=== PATIENT | female | born 1970 | race Caucasian/White ===

== ENCOUNTER → 2019-07-20 16:01 | Outpatient (ROUT) | payer OTHER, SELFPAY ==
[2019-07-22 11:08] LABS: COVID19 Sendout Not Detected (Not Detected)
== END ==
PROVIDERS: Visit Provider Internal Medicine
DX: E34.9 Endocrine disorder, unspecified (principal)
CPT/HCPCS: 87635

== ENCOUNTER 2020-05-19 16:21 | Emergency (ER) | payer OTHER, SELFPAY ==
[2020-05-19] VITALS (8 sets, daily range): BP systolic 123–170; BP diastolic 59–88; PULSE 58–76; RESP 16; TEMP 36.6; O2SAT 96–99; BMI 28.1
--- NOTE | 2020-05-19 16:33 | ED_ITS ---
HPI - General Adult <Roberto Bergman DO - Last Filed: 05/22/20 17:57> General Chief complaint: Abdominal Pain Stated complaint: states right ovarian cyst, more pain today Time Seen by Provider: 05/19/20 16:25 Source: patient Mode of arrival: Ambulatory Limitations: no limitations History of Present Illness HPI narrative: Patient is a 49-year-old female with a known 5 x 5 x 3.8 x 2.9 right side simple ovarian cyst. Was seen by travel counselor [employer] within the past 2 weeks for perimenopausal symptoms and right-sided pain. She was started on control pills for hormone regulation and has only been on these since that visit. She has been taking ibuprofen for the discomfort. She is scheduled for surgery to have right-sided cyst/over removed and also bilateral fallopian tubes. She reports no urinary symptoms. Some nausea but no vomiting. No new vaginal discharge. Related Data Previous Rx's Medication Instructions Recorded norethindrone acetate 1 mg-ethinyl 1 tab PO DAILY #28 tab 05/10/20 estradiol 20 mcg tablet citalopram 10 mg tablet 10 mg PO DAILY #30 tab 05/17/20 lorazepam 0.5 mg tablet 0.5 mg PO DAILY PRN #10 tab 05/21/20 Allergies Allergy/AdvReac Type Severity Reaction Status Date / Time No Known Drug Allergies Allergy Unverified 05/19/20 16:33 Review of Systems <Roberto Bergman DO - Last Filed: 05/22/20 17:57> Constitutional Constitutional: Denies fever(s) Cardiovascular Cardiovascular: Denies chest pain and Denies dyspnea Respiratory Respiratory: Denies dyspnea Gastrointestinal Gastrointestinal: Reports abdominal pain, Denies change in bowel habits, Reports nausea and Denies vomiting Genitourinary Genitourinary: Denies dysuria Genitourinary: Denies dysuria Musculoskeletal Musculoskeletal: Denies arthralgias and Denies myalgias Integumentary/Breasts Skin/Breast: Denies rash Neurologic Neurologic: Denies behavioral changes Psychiatric Psychiatric: Denies behavioral changes Hematologic/Lymphatic On Anticoagulants: No Allergic/Immunologic Allergic/Immunologic: Denies urticaria Patient History <Roberto Bergman DO - Last Filed: 05/22/20 17:57> Medical History Heavy menstrual period Kidney stones (~2017) Painful menstrual periods Surgical History (Updated 05/16/20 @ 21:17 by Gogo Linares) Anesthesia History of tubal ligation (~2006) Family History (Updated 05/16/20 @ 21:19 by Gogo Linares) Father History of heart disease Hyperlipidemia Parkinson's disease Dementia Mother Cancer Brother ALS (amyotrophic lateral sclerosis) Grandfather Cancer Social History Smoking Status: Never smoker Smoking Status: Never smoker Exam <Roberto Bergman DO - Last Filed: 05/22/20 17:57> Initial Vital Signs Initial Vital Signs: Vital Signs Temperature 98 F 05/19/20 16:31 Pulse Rate 70 05/19/20 16:31 Respiratory Rate 16 05/19/20 16:31 Blood Pressure 170/88 H 05/19/20 16:31 Pulse Oximetry 99 05/19/20 16:31 Const General: cooperative and comfortable Limitations: mental status not altered HENMT Head: normal to inspection and normocephalic Resp Effort & Inspection: normal respiratory effort Cardio Rate: regular rate GI Inspection: non-distended Palpation: soft and tender (Right adnexa) Back/Spine/Pelvis Back: CVA tenderness right Skin Lesions: no lesions Rashes: no rashes Neuro General: patient alert and patient awake Cognition: normal cognition Speech: speech normal Extrem General: capillary refill normal Psych Appearance: grossly normal and well kempt <Kerry Claros MD - Last Filed: 05/19/20 22:24> Initial Vital Signs Initial Vital Signs: Vital Signs Temperature 98 F 05/19/20 16:31 Pulse Rate 70 05/19/20 16:31 Respiratory Rate 16 05/19/20 16:31 Blood Pressure 170/88 H 05/19/20 16:31 Pulse Oximetry 99 05/19/20 16:31 Course <Roberto Bergman DO - Last Filed: 05/22/20 17:57> Orders Ordered: Discontinued Medications Acetaminophen (Acetaminophen 325 Mg Tablet) 975 mg PO NOW ONE Stop: 05/19/20 17:55 Last Admin: 05/19/20 17:58 Dose: 975 mg Documented by: MMINOR Diphtheria/Tetanus/Acell Pertussis (Tet,Diph,Pertuss(Acell),Vac/Pf 0.5 Ml Syringe) 0.5 ml IM .ONCE ONE Stop: 05/19/20 17:46 Last Admin: 05/19/20 17:48 Dose: Not Given Documented by: KENRICK Ibuprofen (Ibuprofen 400 Mg Tablet) 400 mg PO NOW ONE Stop: 05/19/20 17:55 Last Admin: 05/19/20 17:59 Dose: 400 mg Documented by: PATTY Ondansetron HCl (Ondansetron 4 Mg Odt) 4 mg PO NOW ONE Stop: 05/19/20 17:47 Last Admin: 05/19/20 17:52 Dose: 4 mg Documented by: KENRICK Vital Signs Vital signs: Vital Signs - 8 hr 05/19/20 16:31 05/19/20 17:01 05/19/20 17:02 Temperature 98 F Pulse Rate 70 76 73 Respiratory Rate 16 16 Blood Pressure 170/88 H 130/72 Pulse Oximetry 99 98 98 05/19/20 18:02 05/19/20 18:30 Temperature Pulse Rate 63 63 Respiratory Rate 16 16 Blood Pressure 125/63 123/67 Pulse Oximetry 97 97 <Kerry Claros MD - Last Filed: 05/19/20 22:24> Orders Ordered: Discontinued Medications Acetaminophen (Acetaminophen 325 Mg Tablet) 975 mg PO NOW ONE Stop: 05/19/20 17:55 Last Admin: 05/19/20 17:58 Dose: 975 mg Documented by: PATTY Diphtheria/Tetanus/Acell Pertussis (Tet,Diph,Pertuss(Acell),Vac/Pf 0.5 Ml Syringe) 0.5 ml IM .ONCE ONE Stop: 05/19/20 17:46 Last Admin: 05/19/20 17:48 Dose: Not Given Documented by: KENRICK Ibuprofen (Ibuprofen 400 Mg Tablet) 400 mg PO NOW ONE Stop: 05/19/20 17:55 Last Admin: 05/19/20 17:59 Dose: 400 mg Documented by: PATTY Ondansetron HCl (Ondansetron 4 Mg Odt) 4 mg PO NOW ONE Stop: 05/19/20 17:47 Last Admin: 05/19/20 17:52 Dose: 4 mg Documented by: KENRICK Vital Signs Vital signs: Vital Signs - 8 hr 05/19/20 16:31 05/19/20 17:01 05/19/20 17:02 Temperature 98 F Pulse Rate 70 76 73 Respiratory Rate 16 16 Blood Pressure 170/88 H 130/72 Pulse Oximetry 99 98 98 05/19/20 18:02 05/19/20 18:30 Temperature Pulse Rate 63 63 Respiratory Rate 16 16 Blood Pressure 125/63 123/67 Pulse Oximetry 97 97 Medical Decision Making <Roberto BergmanDO - Last Filed: 05/22/20 17:57> Lab Data Lab results reviewed: Yes I reviewed the patient's lab results. Result diagrams: 05/19/20 20:40 05/19/20 20:40 Labs: Lab Results 05/19/20 05/19/20 Range/Units 20:40 20:40 WBC 7.0 (4.5-11.0) X10^3/uL RBC 4.16 (4.0-5.2) X10^6/uL Hgb 12.4 (12.0-16.0) g/dL Hct 36.6 (36-46) % MCV 87.8 (80-100) fL MCH 29.7 (26-34) PG MCHC 33.8 (30-36) % RDW 13.8 (11.6-14.8) % Plt Count 245 (150-400) X10^3/uL Neut % (Auto) 73.9 (50-75) % Lymph % (Auto) 20.1 L (25-40) % [place] % (Auto) 5.2 (3-14) % Eos % (Auto) 0.3 L (2-4) % Baso % (Auto) 0.5 (0-2) % Neut # (Auto) 5100 (8279-5064) /uL Lymph # (Auto) 1400 (3250-3568) /uL [place] # (Auto) 400 (0-900) /uL Eos # (Auto) 0 (0-450) /uL Baso # (Auto) 0 (0-100) /uL Sodium 138 (137-145) mmol/L Potassium 3.8 (3.4-5.1) mmol/L Chloride 107 (98-107) mmol/L Carbon Dioxide 26 (22-32) mmol/L BUN 10 (7-17) mg/dL Creatinine 0.69 (0.52-1.04) mg/dL Estimated GFR > 60.0 (>60) mL/min BUN/Creatinine Ratio 14.5 (6-22) Glucose 100 (70-100) mg/dL Calcium 9.2 (8.4-10.2) mg/dL Total Bilirubin 0.4 (0.2-1.3) mg/dL AST 23 (14-36) IU/L ALT 15 (<35) IU/L Alkaline Phosphatase 46 (38-126) U/L Total Protein 7.1 (6.3-8.2) g/dL Albumin 4.1 (3.5-5.0) g/dL Globulin 3.0 (1.7-4.1) g/dL Albumin/Globulin Ratio 1.4 (1.0-2.8) Point of Care Testing Test Results Negative Urine Dip Bedside Urine Glucose Negative Bedside Urine Bilirubin - Negative Bedside Urine Ketone - Negative Urine Specific [place] 1.010 Bedside Urine Occult Blood - Negative Bedside Urine pH 6.0 Bedside Urine Protein - Negative Bedside Urine Urobilinogen - Negative Bedside Urine Nitrite - Negative Bedside Urine Leukocytes - Negative Esterase Point of care testing: Point of Care Testing Test Results Negative Urine Dip Bedside Urine Glucose Negative Bedside Urine Bilirubin - Negative Bedside Urine Ketone - Negative Urine Specific [place] 1.010 Bedside Urine Occult Blood - Negative Bedside Urine pH 6.0 Bedside Urine Protein - Negative Bedside Urine Urobilinogen - Negative Bedside Urine Nitrite - Negative Bedside Urine Leukocytes - Negative Esterase MDM Narrative Medical decision making narrative: Patient has a known right ovarian cyst from prior ultrasound here with pain in her right lower quadrant. Will start with ultrasound to evaluate for any changing of the cyst. Potentially will need further evaluation with may be CT scan. Care turned over to Dr. Claros at change of shift to follow up on ultrasound and re-evaluation disposition. <Kerry Claros MD - Last Filed: 05/19/20 22:24> Medical Records Medical records reviewed: Yes I reviewed the patient's medical records. Lab Data Lab results reviewed: Yes I reviewed the patient's lab results. Labs: Lab Results 05/19/20 05/19/20 Range/Units 20:40 20:40 WBC 7.0 (4.5-11.0) X10^3/uL RBC 4.16 (4.0-5.2) X10^6/uL Hgb 12.4 (12.0-16.0) g/dL Hct 36.6 (36-46) % MCV 87.8 (80-100) fL MCH 29.7 (26-34) PG MCHC 33.8 (30-36) % RDW 13.8 (11.6-14.8) % Plt Count 245 (150-400) X10^3/uL Neut % (Auto) 73.9 (50-75) % Lymph % (Auto) 20.1 L (25-40) % [place] % (Auto) 5.2 (3-14) % Eos % (Auto) 0.3 L (2-4) % Baso % (Auto) 0.5 (0-2) % Neut # (Auto) 5100 (1700-3157) /uL Lymph # (Auto) 1400 (3724-7450) /uL [place] # (Auto) 400 (0-900) /uL Eos # (Auto) 0 (0-450) /uL Baso # (Auto) 0 (0-100) /uL Sodium 138 (137-145) mmol/L Potassium 3.8 (3.4-5.1) mmol/L Chloride 107 (98-107) mmol/L Carbon Dioxide 26 (22-32) mmol/L BUN 10 (7-17) mg/dL Creatinine 0.69 (0.52-1.04) mg/dL Estimated GFR > 60.0 (>60) mL/min BUN/Creatinine Ratio 14.5 (6-22) Glucose 100 (70-100) mg/dL Calcium 9.2 (8.4-10.2) mg/dL Total Bilirubin 0.4 (0.2-1.3) mg/dL AST 23 (14-36) IU/L ALT 15 (<35) IU/L Alkaline Phosphatase 46 (38-126) U/L Total Protein 7.1 (6.3-8.2) g/dL Albumin 4.1 (3.5-5.0) g/dL Globulin 3.0 (1.7-4.1) g/dL Albumin/Globulin Ratio 1.4 (1.0-2.8) Point of Care Testing Test Results Negative Urine Dip Bedside Urine Glucose Negative Bedside Urine Bilirubin - Negative Bedside Urine Ketone - Negative Urine Specific [place] 1.010 Bedside Urine Occult Blood - Negative Bedside Urine pH 6.0 Bedside Urine Protein - Negative Bedside Urine Urobilinogen - Negative Bedside Urine Nitrite - Negative Bedside Urine Leukocytes - Negative Esterase Point of care testing: Point of Care Testing Test Results Negative Urine Dip Bedside Urine Glucose Negative Bedside Urine Bilirubin - Negative Bedside Urine Ketone - Negative Urine Specific [place] 1.010 Bedside Urine Occult Blood - Negative Bedside Urine pH 6.0 Bedside Urine Protein - Negative Bedside Urine Urobilinogen - Negative Bedside Urine Nitrite - Negative Bedside Urine Leukocytes - Negative Esterase MDM Narrative Medical decision making narrative: Care is assumed of this patient. She complains of a week of increasing general malaise, vague abdominal pain and and achiness from her right lower quadrant hip down into her right thigh anteriorly and laterally with a bit of radiation up to the right flank as well. She notes that she typically has difficulty with constipation but recently has had looser stools. She denies fevers, vomiting, diarrhea. She is scheduled to have the ovary and cyst removed on June 07. Ultrasound repeated today is essentially similar to that done in the office in the office the cyst measured 5.5 x 3.8 x 2.9 and today it measures 5.2 x 3.3 x 2.9 with no evidence of torsion, rupture or right lower quadrant lymphadenopathy. Her patient remains very active that there is a something acutely wrong with her abdomen due to the pain she is having. Urine dip is entirely unremarkable with no protein, red blood cells, white blood cells, leukocyte esterase. Patient has had kidney stones previously she notes that it hurt quite a bit more and with the negative red blood cells on urine dip would be far less likely at this time. On physical exam she has some mild tenderness in her pelvis more right-sided than left side there is no rebound, no guarding, belly is otherwise soft with good bowel tones. As her symptoms have been ongoing for about a week, acute appendicitis is far less likely. Patient is interested in a CT scan of the abdomen but I am not sure that that is going to provide any additional clinical information at this time. Additional possibilities do certainly include constipation as a cause of her diffuse abdominal pain and exacerbating the pain from the right ovarian cyst. Labs will be added to her initial workup as well as a flat plate of the abdomen does to evaluate stool load. 1020pm labs are unremarkable. Abdominal film does not show significant pathology or significant constipation. Patient also has a number of questions about perimenopause. She took a single dose of Celexa 10 mg last night and is wondering if that might be contributing to the general malaise and GI upset she is experiencing. I did encourage her to continue the low-dose control pill and try 5 mg of Celexa (half a pill ) for the next at least 4 days 1st thing in the morning to try to acclimate. In listening to the rest of her constellation of symptoms I think that this is a very appropriate addition to th e control and encouraged her to give it at least a month before she has decided it was not helpful. All questions were answered and she is safe for home discharge Discharge Plan Departure Patient Disposition: Home Clinical Impression: Right ovarian cyst, Right lower quadrant abdominal pain Instructions: DI for Ovarian Cyst Activity Restrictions/Additional Instructions: Thank you for coming in today I am very reassured with the workup that we did today. There is no evidence of overwhelming infection, sepsis, appendicitis, diverticulitis, urinary tract infection, kidney stone, severe constipation or bowel obstruction. Your rate ovarian cyst has not significantly changed in size. I suspect that it is the cyst that is irritating the piriformis muscle that likely is causing this uncomfortable right lower quadrant/hip pain. Regarding your Joceline menopausal symptoms, I do suggest that he continue with the control pills and change the citalopram to morning dosing rather than evening dosing and for the 1st 4 days or so take half a pill only. Please consider giving it a full month to decide if it is helpful before discontinuing. I encourage you to follow-up both with your primary care physician as well as your OBGYN. You are welcome to return to the emergency department if you have further or worsening symptoms. Prescriptions: No Action citalopram [Celexa] 10 mg tablet 10 mg PO DAILY Qty: 30 RF: 11 lorazepam 0.5 mg tablet 0.5 mg PO DAILY PRN (Reason: anxiety) Qty: 10 RF: 0 norethindrone ac-eth estradiol [Loestrin 05/16 ()] 1-20 mg-mcg tablet 1 tab PO DAILY Qty: 28 RF: 11 Referrals: Ida Jarquin, ZACH, [facility]OC[facility] [Primary Care Provider] -
--- NOTE | 2020-05-19 17:10 | DI.US.S_ITS ---
This report includes an Addendum and supersedes previous reports for this exam. PROCEDURE: US PELVIC COMPLETE INDICATIONS: right ovary enlarged and cystic on CT TECHNIQUE: Real-time scanning was performed of the pelvic organs, with image documentation. Additional endovaginal scanning was necessary due to incomplete visualization of the adnexal and endometrial structures by transabdominal scanning. COMPARISON: [facility], CT, CT CHEST ABD PEL W CON, 05/19/2020, 11:04. [facility], US, US PELVIC COMPLETE, 06/24/2019, 16:30. FINDINGS: Uterus: Uterus is retroverted measuring 6.2 by 9.7 x 5.5 cm. The endometrium measures 7.5 mm in combined thickness. Ovaries: The right ovary measures 7.4 x 3.1 x 2.8 cm. Internal arterial and venous waveforms are noted. The left ovary is not definitely identified. Within the right ovary is an anechoic simple appearing cyst with posterior acoustic enhancement measuring 5.2 x 3.4 by 2.9 cm. Additional smaller adjacent cysts is noted. No suspicious cystic or solid mass within the left ovary. Other: No pathologic free abdominal or pelvic fluid. IMPRESSION: Simple appearing right ovarian cysts measuring up to 5.2 cm in greatest diameter. Recommend yearly ultrasound follow-up. No evidence of torsion. Endometrial thickness measures 7.5 mm. Dictated by: Te Aguirre D.O. on 05/19/2020 at 17:00 Approved by: Te Aguirre D.O. on 05/19/2020 at 17:11 ADDENDUM: COMPARISON: [facility], US, US PELVIC COMPLETE, 05/10/2020, 16:01. Due to technical error, the patient name and list of comparison studies in the initial report are incorrect. Images of this study are of patient Alvina Rodriguez 74. The findings and remainder of the report are correct. This study is compared to a prior examination dated 05/10/20. The anechoic cyst seen within the right ovary is grossly unchanged since 05/10/20. Continued ultrasound surveillance is again recommended. Dictated by: Adan Tobias M.D. on 05/21/2020 at 14:14 Approved by: Adan Tobias M.D. on 05/21/2020 at 14:20
[2020-05-19] MEDS: ONDANSETRON 4 MG ODT PO (17:52)
[2020-05-19] MEDS: ACETAMINOPHEN 325 MG TABLET 975 MG PO (17:58)
[2020-05-19] MEDS: IBUPROFEN 400 MG TABLET PO (17:59)
--- NOTE | 2020-05-19 20:35 | DI.RAD.S_ITS ---
PROCEDURE: XR ABDOMEN 1V INDICATIONS: abdominal pain TECHNIQUE: One view of the abdomen acquired. COMPARISON: [facility], CT, CT KUB, 04/13/2017, 11:37. FINDINGS: Surgical changes and devices: None. Bowel: Bowel gas pattern is within normal limits. Soft tissues: No suspicious abdominal calcifications. Bones: No suspicious bony lesions. IMPRESSION: 1. No acute intra-abdominal radiographic abnormality. Dictated by: Jonathan Larios M.D. on 05/19/2020 at 22:33 Approved by: Jonathan Larios M.D. on 05/19/2020 at 22:33
[2020-05-19 20:53] LABS: Add Manual Diff / Slide Review NO; Basophils Absolute Auto 0 /uL (0-100); Basophils Percent Auto 0.5 % (0-2); Eosinophils Absolute Auto 0 /uL (0-450); Eosinophils Percent Auto 0.3 % (2-4); Hematocrit 36.6 % (36-46); Hemoglobin 12.4 g/dL (12.0-16.0); Lymphocytes Absolute Auto 1400 /uL (1100-4500); Lymphocytes Percent Auto 20.1 % (25-40); Mean Corpuscular HGB Conc 33.8 % (30-36); Mean Corpuscular Hemoglobin 29.7 PG (26-34); Mean Corpuscular Volume 87.8 fL (80-100); Monocytes Absolute Auto 400 /uL (0-900); Monocytes Percent Auto 5.2 % (3-14); Neutrophils Absolute Auto 5100 /uL (1500-7000); Neutrophils Percent Auto 73.9 % (50-75); Platelet Count 245 X10^3/uL (150-400); Red Blood Cell Count 4.16 X10^6/uL (4.0-5.2); Red Cell Distribution Width 13.8 % (11.6-14.8)
[2020-05-19 21:00] LABS: Alanine Aminotransferase 15 IU/L (<35); Albumin 4.1 g/dL (3.5-5.0); Albumin Globulin Ratio 1.4 (1.0-2.8); Alkaline Phosphatase 46 U/L (38-126); Aspartate Aminotransferase 23 IU/L (14-36); BUN Creatinine Ratio 14.5 (6-22); Bilirubin Total 0.4 mg/dL (0.2-1.3); Blood Urea Nitrogen 10 mg/dL (7-17); Calcium 9.2 mg/dL (8.4-10.2); Carbon Dioxide 26 mmol/L (22-32); Chloride 107 mmol/L (98-107); Estimated Glomerular Filt Rate > 60.0 mL/min (>60); Glucose 100 mg/dL (70-100); HEMOLYSIS < 15 (0-50); Potassium 3.8 mmol/L (3.4-5.1); Sodium 138 mmol/L (137-145); Total Protein 7.1 g/dL (6.3-8.2)
== END 2020-05-19 22:30 | disposition home or self-care (01) ==
PROVIDERS: Emergency Provider Emergency Medicine; PCP Nurse Practitioner Family; Referring Provider Nurse Practitioner Family
DX: N83.201 Unspecified ovarian cyst, right side (principal); R10.31 Right lower quadrant pain; R11.0 Nausea; Z23 Encounter for immunization
CPT/HCPCS: 36415; 74018; 76830; 76856; 80053; 81003; 81025; 85025; 90471; 99284

== ENCOUNTER → 2020-06-13 14:41 | Outpatient (CLI) | payer OTHER, SELFPAY ==
[2020-06-13 15:17] LABS: COVID19 -Nasal RAPID Negative (Negative)
== END ==
PROVIDERS: PCP Nurse Practitioner Family; Visit Provider Obstetrics & Gynecology
DX: Z01.812 Encounter for preprocedural laboratory examination (principal); Z20.822 Contact with and (suspected) exposure to COVID-19
CPT/HCPCS: 87635

== ENCOUNTER 2020-06-14 08:12 | Day surgery (SDC) | payer OTHER, SELFPAY ==
[2020-06-14] VITALS (9 sets, daily range): BP systolic 115–143; BP diastolic 60–88; PULSE 65–118; RESP 10–16; TEMP 36.2–37.5; O2SAT 94–98; BMI 27.3
--- NOTE | 2020-06-14 | PATH_ITS ---
[facility] Accession Number: [id number] . 01 Material submitted: . ovary - RIGHT OVARY AND BILATERAL FALLOPIAN TUBES . 01 Clinical history: . SDC . 02 Diagnosis: Right Ovary and Bilateral Fallopian Tubes, Right Oophorectomy and Bilateral Salpingectomy: Ovary with benign serous cystadenoma. Segments of bilateral fallopian tubes with simple benign paratubal cysts. No evidence of borderline features or malignancy. [facility] 06/18/2020 1530 Local . 02 Comment: As part of routine billing and quality technician, Dr. Mobley has reviewed this case and agrees with the diagnosis of a benign serous cystadenoma. . 02 Electronically signed: . Kishan Simmons MD, PhD, Pathologist NPI- [id number] . 01 Gross description: . The specimen is received in formalin, labeled right ovary and bilateral fallopian tubes and consists of a 4.0 x 3.0 x 2.2 cm cystic ovary. The external surface is brooke and smooth to cerebriform and intact. Opening reveals a brooke-pink smooth inner lining with no papillary excrescences. The cyst contains a yellow-brooke serous fluid. Also received are two fallopian tube segments measuring 2.0 cm in length by 0.6 cm in diameter and 3.0 cm in length by 1.0 cm in diameter. The serosa is brooke-pink to pink-purple and smooth. Sectioning reveals a brooke mucosa and a lumen measuring up to 0.4 cm in diameter. Stone Cleaner sections are submitted. . A1-A4: outside industrial sales representative cystic ovary. A5: outside industrial sales representative smaller fallopian tube segment (margin blue). A6: outside industrial sales representative longer fallopian tube segment (margin blue). ([id number]) /MRV 06/15/2020 1427 Local . 02 Pathologist provided ICD-10: Z87.42, N83.8, D27.0 . 02 CPT . 157197 Performed at: 01 [facility] [address] [id number] MD Jonathan Salazar MD Phone: [phone] Performed at: [facility] [address] [address] [place], [place] [id number] MD Celeste Haynes MD Phone: [phone]
[2020-06-14] MEDS: SCOPOLAMINE 1 PATCH TOP (08:54)
[2020-06-14] MEDS: LACTATED RINGERS 1,000 ML 100 ML IV (08:54)
[2020-06-14] MEDS: ACETAMINOPHEN 325 MG TABLET 975 MG PO (08:54)
--- NOTE | 2020-06-14 11:52 | PM.HP.1 ---
History of Present Illness History of Present Illness Date Patient Seen: 06/14/20 Time Patient Seen: 11:52 Chief complaint: SDC Narrative: Patient is a 49-year-old 3 para 3 who presents for a laparoscopic right salpingo-oophorectomy and left salpingectomy. This is being done due to a right ovarian cyst. Patient History Medical History Heavy menstrual period Kidney stones (~2016) Painful menstrual periods Surgical History (Updated 05/16/20 @ 21:17 by Gogo Linares) Anesthesia History of tubal ligation (~2005) Family & Social History Family History (Updated 05/16/20 @ 21:19 by Gogo Linares) Father History of heart disease Hyperlipidemia Parkinson's disease Dementia Mother Cancer Brother ALS (amyotrophic lateral sclerosis) Grandfather Cancer Social History: household members spouse Tobacco & Substance use: Smoking Status Never smoker alcohol intake current alcohol intake frequency holiday/special occasion Substance Use Type does not use Meds Home Medications and Allergies Home Medications Medication Instructions Recorded Confirmed Type norethindrone acetate 1 mg-ethinyl 1 tab PO DAILY #28 tab 05/10/20 06/11/20 Rx estradiol 20 mcg tablet lorazepam 0.5 mg tablet 0.5 mg PO DAILY PRN #10 tab 05/21/20 06/14/20 Rx sertraline 25 mg PO DAILY 06/14/20 06/14/20 History Allergies Allergy/AdvReac Type Severity Reaction Status Date / Time tramadol AdvReac Mild Headache Verified 06/14/20 08:48 Exam Vital Signs (past 8 hours): - 06/14/20 08:38 Temperature 97.1 F L Pulse Rate 65 Respiratory Rate 13 Blood Pressure 143/88 H Pulse Oximetry 98 Oxygen Delivery Method Room Air HEENT: No thyromegaly, no anterior cervical or supraclavicular lymphadenopathy. Lungs:Clear to auscultation bilaterally, no wheezes. Cardiovascular: Regular rate and rhythm, no murmurs, rubs, or gallops. Abdomen: No scars. No hepatosplenomegaly. No masses palpable. External genitalia: Normal Vagina: Normal Cervix: Normal Bimanual exam: 7 Week size anteverted uterus. Right adnexal fullness Mobile. No left adnexal tenderness or fullness Rectal: No masses. Assessment & Plan Assessment & Plan narrative: Assessment: 49-year-old 3 para 3 with a right ovarian cyst Plan: Laparoscopic RSO and left salpingectomy The risks, benefits, and alternatives to the procedure were explained to the patient. The risks including bleeding, infection, injury to the bowel, bladder, or ureters. She understands these risks and agrees to proceed. A full par Q was held and consent form was signed. COVID-19 COVID-19 status: Negative Result date/Date tested (Pos, Neg/Pending): 06/13/20 Time Spent With Patient Time with patient: 15-24 minutes
--- NOTE | 2020-06-14 11:56 | PM.PREOP ---
Pre-operative Note COVID-19 COVID-19 status: Negative Result date/Date tested (Pos, Neg/Pending): 06/13/20 Interval Note History & Physical reviewed/Exam performed by Physician: Yes Changes to H&P: No H&P completed within 30 days and has changed as indicated here:: 06/14/20
--- NOTE | 2020-06-14 12:22 | SUR.OPER ---
Lithotomy on padded OR bed, head on pillow, arms secured on padded arm boards at <90 degrees abduction. Legs secured in padded yellow fins stirrups.
[2020-06-14] MEDS: BUPIVACAINE 0.5% W/ EPI (PF) 30 ML VIAL INJ (12:33)
[2020-06-14] MEDS: LACTATED RINGERS 1,000 ML 120 ML IV (12:33)
--- NOTE | 2020-06-14 13:04 | PM.GYNOP.1 ---
Operative Date/Time/Diagnoses Date of procedure: 06/14/20 Time of procedure: 13:04 Pre-op diagnosis: Right ovarian cyst Post-op diagnosis: same Procedure & Clinicians Procedure: Procedures Operation Date: 06/14/20 09:45 Actual Procedures Side Surgeon p Laparoscopic Right Salpingo-oophorectomy W/Left Salpingectomy Kaylee Torres MD Indications: Right ovarian cyst Surgeon: Kaylee Torres Anesthesia Type: General Operative Notes Findings: Normal uterus Tubes s/p ligation Adhesions between tubes and ovaries, and ovaries and sidewall 7cm Right ovarian cyst Normal liver and gallbladder Normal appendix Closure Type: primary Specimen(s): left tube and right tube & ovary Estimated blood loss (mL): 10 Blood products transfused: none Procedure in detail: after informed consent was obtained, the patient was taken to the operating room where she was placed in the dorsal supine position. After adequate general endotracheal anesthesia was achieved, she was placed in the dorsal lithotomy position, and prepped and draped in the usual sterile fashion. A time-out was performed. A bivalve speculum was placed into the vagina and the anterior lip of the cervix grasped with a single-tooth tenaculum. The cervical os was sequentially dilated until the Zumi uterine manipulator could pass easily into the endometrial cavity. Single-tooth tenaculum was removed from the anterior lip of the cervix. The bivalve speculum was removed from the vagina. Attention was turned to the abdomen where 6 cc of 0.5% Marcaine with epinephrine were injected in the umbilical fold. A 5 mm incision was made. The Veress needle was placed into the peritoneal cavity, and its placement confirmed by aspiration and drop test. The abdominal cavity was insufflated with 4.2 L of CO2. The Veress needle was removed, and a 5 mm trocar was placed without difficulty. Initial inspection of the pelvis and abdomen revealed the findings noted above. Two other incisions were made lateral to the umbilicus after 6 cc of 0.5% Marcaine with epinephrine were injected. 5 mm trocars were placed under direct visualization. Approximately 20 cc of clear fluid were drained from the right ovarian cyst. The right tube and ovary were grasped with an atraumatic grasper. Using the Endo Vivian, the right ovary was dissected away from the right pelvic sidewall with care to avoid the ureter. The PlasmaKinetic at 40 w, was used to cauterize and cut the infundibulopelvic ligament on the right. The utero-ovarian ligament was cauterized and cut. The mesosalpinx was cauterized and cut all the way down to the cornua of the uterus. The tube was amputated at the cornua. The tube and ovary were placed into the anterior cul-de-sac. The left tube was grasped with an atraumatic grasper. The tube was dissected off of the colon using the Endo Vivian. The mesosalpinx was then cauterized and cut with the PlasmaKinetic all the way to the cornua of the uterus. The tube was amputated at the cornua of the uterus. The tube was placed into the anterior cul-de-sac. A 4th incision was made through a previous incision just above the pubic symphysis After 6 cc of 0.5% Marcaine with epinephrine were injected. A 12 mm incision was made. A 12 mm trocar was placed under direct visualization. The small endobag was placed through the suprapubic trocar. The tubes and right ovary were placed into the bag. The trocar was removed. The bag was pulled up through the fascia and subcutaneous layer. The pelvis was inspected and hemostasis was achieved. The instruments were removed from the abdomen. The CO2 was allowed to escape. The suprapubic incision was closed on the fascia with 0 Vicryl. The subcutaneous layer was irrigated with warm normal saline. All of the incisions were closed with 4 0 Biosyn in a subcuticular fashion. Steri-Strips and Allevyn dressings were placed. The Zumi uterine manipulator was removed from the uterus. Sponge, lap, and instrument counts were correct x2. The patient tolerated the procedure well, and was taken to PACU in stable condition. Complications: none Post-operative Condition: stable Disposition: PACU Plan for aftercare: Home after Recovery
[2020-06-14] MEDS: fentaNYL 100 MCG/2 ML INJ IV (13:20)
[2020-06-14] MEDS: OXYCODONE IR 5 MG TABLET PO (13:21)
[2020-06-14] MEDS: ONDANSETRON 4 MG/2 ML INJ IV (13:53)
== END 2020-06-14 14:25 | disposition home or self-care (01) ==
PROVIDERS: PCP Nurse Practitioner Family; Referring Provider Obstetrics & Gynecology; Visit Provider Obstetrics & Gynecology
PROC: (CPT 58661; principal; 2020-06-14 09:45)
DX: D27.0 Benign neoplasm of right ovary (principal); F41.9 Anxiety disorder, unspecified; N73.6 Female pelvic peritoneal adhesions (postinfective); N83.8 Other noninflammatory disorders of ovary, fallopian tube and broad ligament
CPT/HCPCS: 58661; J0330; J1100; J1885; J2250; J2405; J2704; J3010